=== PATIENT | male | born 2000 | race African-American/Black ===

== ENCOUNTER 2019-04-26 15:30 | Emergency (ER) | payer BC ==
[~2019-04-26] VITALS: Ht 182.9 cm; Wt 72.6 kg
[2019-04-26 16:29] LABS: BASO % 0 % (0-3); EOS % 0 % (0-3); HEMATOCRIT 43.9 % (39.0-53.0); HEMOGLOBIN 14.4 g/dL (13.0-17.5); LYMPH # 1.3 x10^3/uL (1.0-4.8); LYMPH % 16 % (24-48); MEAN CORPUSCULAR HEMOGLOBIN 26 pg (25-35); MEAN CORPUSCULAR HGB CONC 33 g/dL (31-37); MEAN CORPUSCULAR VOLUME 80 fL (79-100); MONO # 0.5 x10^3/uL (0.0-1.1); MONO % 6 % (0-9); NEUT # 6.2 x10^3/uL (1.8-7.7); NEUT % 77 % (31-73); PLATELET COUNT 197 x10^3/uL (140-400); RED BLOOD COUNT 5.49 x10^6/uL (4.30-5.70); RED CELL DISTRIBUTION WIDTH 14.6 % (11.5-14.5)
[2019-04-26] MEDS ORDERED: ONDANSETRON PF 4 MG/2 ML VIAL. ONE (16:29)
[2019-04-26 16:30] LABS: BILIRUBIN,URINE NEGATIVE (NEG); CLARITY,URINE CLEAR; COLOR,URINE YELLOW; NITRITE,URINE NEGATIVE (NEG); PH,URINE 7.5; PROTEIN,URINE 30 mg/dL (NEG-TRACE)
[2019-04-26 16:43] LABS: CALCIUM 9.8 mg/dL (8.5-10.1); CREATININE 1.1 mg/dL (0.7-1.3); GFR 103.3; POTASSIUM 3.6 mmol/L (3.5-5.1)
[2019-04-26 16:43] LABS: BACTERIA,URINE 0 /HPF (0-FEW); WBC,URINE 0 /HPF (0-4)
[2019-04-26] MEDS ORDERED: ONDANSETRON PF 4 MG/2 ML VIAL. IVP ONE (16:45)
[2019-04-26] MEDS ORDERED: IV NORMAL SALINE 1000ML BAG 1,000 ML IV ONE ×2 (16:45→17:00)
[2019-04-26 16:49] LABS: ALBUMIN 4.3 g/dL (3.4-5.0); ALBUMIN/GLOBULIN RATIO 1.1 (1.0-1.7); TOTAL BILIRUBIN 0.5 mg/dL (0.2-1.0); TOTAL PROTEIN 8.1 g/dL (6.4-8.2)
[2019-04-26 16:58] LABS: INFLUENZA A PATIENT NEGATIVE (NEGATIVE); INFLUENZA B PATIENT NEGATIVE (NEGATIVE)
[2019-04-26 16:59] LABS: AMPHETAMINE/METHAMPHETAMINE NEG (NEG); BARBITURATES NEG (NEG); BENZODIAZEPINES NEG (NEG); CANNABINOIDS POS (NEG); COCAINE NEG (NEG); METHADONE NEG (NEG); OPIATES NEG (NEG); PHENCYCLIDINE NEG (NEG)
[2019-04-26] MEDS ORDERED: fentaNYL PF VIAL 100 MCG/2 ML VIAL IVP ONE (17:00)
--- NOTE | 2019-04-26 17:08 | PHYS DOC ---
Past Medical History Past Medical History: No Pertinent History (LOYDA ARSHAD APRN) Alcohol Use: Occasionally Drug Use: Marijuana (LOYDA ARSHAD APRN) Adult General Chief Complaint Chief Complaint: NAUSEA/VOMITING/DIARRHA HPI HPI Patient is a 18 year old male who presents with generalized abdominal pain for the last 3 days. Patient states the first day he had some diarrhea but now he cannot use the restroom. Patient states he does have the urge to have the bowel movement but cannot. Patient states he started to have some chest pain also. Patient states his chest doesn't right now but is mostly due to vomiting. He rates his pain a 4 out of 10. States at times is sharp and stabbing. He states that he is vomiting yellow bile. (LOYDA ARSHAD APRN) Review of Systems Review of Systems Cardiovascular: Chest pain with vomiting GI: abdominal pain, nausea, vomiting, denies bloody stools or diarrhea [] All other systems were reviewed and found to be within normal limits, except as documented in this note. (LOYDA ARSHAD APRN) Current Medications Current Medications Current Medications Medications (Trade) Dose Ordered Sig/Meghan Start Time Stop Time Status Last Admin Dose Admin Famotidine (Pepcid Vial) 20 mg 1X ONCE 04/26/19 17:45 04/26/19 17:46 DC 04/26/19 17:16 20 MG Fentanyl Citrate (Fentanyl 2ml Vial) 50 mcg 1X ONCE 04/26/19 17:00 04/26/19 17:02 DC 04/26/19 17:11 50 MCG Haloperidol Lactate (Haldol Inj) 2.5 mg 1X ONCE 04/26/19 20:15 04/26/19 20:16 DC 04/26/19 19:49 2.5 MG Info (CONTRAST GIVEN -- Rx MONITORING) 1 each PRN DAILY PRN 04/26/19 17:15 04/26/19 20:52 DC Iohexol (Omnipaque 300 Mg/ml) 75 ml 1X ONCE 04/26/19 17:45 04/26/19 17:46 DC 04/26/19 17:25 75 ML Ondansetron HCl (Zofran) 4 mg 1X ONCE 04/26/19 16:45 04/26/19 16:46 DC 04/26/19 16:35 4 MG Sodium Chloride 1,000 ml @ 1,000 mls/hr 1X ONCE 04/26/19 17:00 04/26/19 17:59 DC 04/26/19 17:12 1,000 MLS/HR (ED CORDOVA MD) Allergies Allergies Allergies Coded Allergies Type Severity Reaction Last Updated Verified No Known Drug Allergies 04/26/19 No (ED CORDOVA MD) Physical Exam Physical Exam Constitutional: Well developed, well nourished, no acute distress, non-toxic appearance. [] HENT: Normocephalic, atraumatic, bilateral external ears normal, oropharynx moist, no oral exudates, nose normal. [] Eyes: PERRLA, EOMI, conjunctiva normal, no discharge. [] Neck: Normal range of motion, no tenderness, supple, no stridor. [] Cardiovascular:Heart rate regular rhythm, no murmur [] Lungs & Thorax: Bilateral breath sounds clear to auscultation [] Abdomen: Bowel sounds normal, soft, generalized tenderness, no masses, no pulsatile masses. [] Skin: Warm, dry, no erythema, no rash. [] Back: No tenderness, no CVA tenderness. [] Extremities: No tenderness, no cyanosis, no clubbing, ROM intact, no edema. [] Neurologic: Alert and oriented X 3, normal motor function, normal sensory function, no focal deficits noted. [] Psychologic: Affect normal, judgement normal, mood normal. [] (LOYDA ARSHAD APRN) Current Patient Data Vital Signs Vital Signs Date Time Temp Pulse Resp B/P (MAP) Pulse Ox O2 Delivery O2 Flow Rate FiO2 04/26/19 20:40 60 18 132/57 (82) 98 Room Air 04/26/19 15:48 98.4 98.4 (ED CORDOVA MD) Lab Values Laboratory Tests Test 04/26/19 15:43 04/26/19 16:06 Urine Collection Type Unknown Urine Color Yellow Urine Clarity Clear Urine pH 7.5 Urine Specific [place] >=1.030 Urine Protein 30 mg/dL (NEG-TRACE) Urine Glucose (UA) Negative mg/dL (NEG) Urine Ketones (Stick) Trace mg/dL (NEG) Urine Blood Negative (NEG) Urine Nitrite Negative (NEG) Urine Bilirubin Negative (NEG) Urine Urobilinogen Dipstick 1.0 mg/dL (0.2 mg/dL) Urine Leukocyte Esterase Negative (NEG) Urine RBC 3-5 /HPF (0-2) Urine WBC 0 /HPF (0-4) Urine Bacteria 0 /HPF (0-FEW) Urine Mucus Mod /LPF Urine Opiates Screen Neg (NEG) Urine Methadone Screen Neg (NEG) Urine Barbiturates Neg (NEG) Urine Phencyclidine Screen Neg (NEG) Urine Amphetamine/Methamphetamine Neg (NEG) Urine Benzodiazepines Screen Neg (NEG) Urine Cocaine Screen Neg (NEG) Urine Cannabinoids Screen Pos (NEG) Urine Ethyl Alcohol Neg (NEG) White Blood Count 8.0 x10^3/uL (4.0-11.0) Red Blood Count 5.49 x10^6/uL (4.30-5.70) Hemoglobin 14.4 g/dL (13.0-17.5) Hematocrit 43.9 % (39.0-53.0) Mean Corpuscular Volume 80 fL (79-100) Mean Corpuscular Hemoglobin 26 pg (25-35) Mean Corpuscular Hemoglobin Concent 33 g/dL (31-37) Red Cell Distribution Width 14.6 % (11.5-14.5) H Platelet Count 197 x10^3/uL (140-400) Neutrophils (%) (Auto) 77 % (31-73) H Lymphocytes (%) (Auto) 16 % (24-48) L Monocytes (%) (Auto) 6 % (0-9) Eosinophils (%) (Auto) 0 % (0-3) Basophils (%) (Auto) 0 % (0-3) Neutrophils # (Auto) 6.2 x10^3/uL (1.8-7.7) Lymphocytes # (Auto) 1.3 x10^3/uL (1.0-4.8) Monocytes # (Auto) 0.5 x10^3/uL (0.0-1.1) Eosinophils # (Auto) 0.0 x10^3/uL (0.0-0.7) Basophils # (Auto) 0.0 x10^3/uL (0.0-0.2) Sodium Level 139 mmol/L (136-145) Potassium Level 3.6 mmol/L (3.5-5.1) Chloride Level 101 mmol/L (98-107) Carbon Dioxide Level 26 mmol/L (21-32) Anion Gap 12 (6-14) Blood Urea Nitrogen 25 mg/dL (8-26) Creatinine 1.1 mg/dL (0.7-1.3) Estimated GFR (Cockcroft-Gault) 103.3 BUN/Creatinine Ratio 23 (6-20) H Glucose Level 98 mg/dL (70-99) Calcium Level 9.8 mg/dL (8.5-10.1) Total Bilirubin 0.5 mg/dL (0.2-1.0) Aspartate Amino Transferase (AST) 22 U/L (15-37) Alanine Aminotransferase (ALT) 17 U/L (16-63) Alkaline Phosphatase 74 U/L (46-116) Total Protein 8.1 g/dL (6.4-8.2) Albumin 4.3 g/dL (3.4-5.0) Albumin/Globulin Ratio 1.1 (1.0-1.7) Lipase 189 U/L (73-393) Influenza Type A Antigen Negative (NEGATIVE) Influenza Type B Antigen Negative (NEGATIVE) Laboratory Tests 04/26/19 16:06 Laboratory Tests 04/26/19 16:06 (ED CORDOVA MD) EKG EKG [] (LOYDA ARSHAD APRN) Radiology/Procedures Radiology/Procedures [] (LOYDA ARSHAD APRN) Impressions: [facility] [address] [place] [address] IMAGING REPORT Signed PATIENT: CAROLYN SHANKS ACCOUNT: [id number] : 2000 LOCATION: ER AGE: 18 SEX: M EXAM STATUS: REG ER ORD. PHYSICIAN: LOYDA ARSHAD APRN REASON: abd pain, n, v PROCEDURE: CT ABD PELV W/ IV CONTRST ONLY Exam: CT abdomen and pelvis with contrast INDICATION: Abdominal pain TECHNIQUE: Sequential axial images through the abdomen and pelvis obtained following the administration of 75 mL of Omni 300 IV contrast. Sagittal and coronal reformatted images were reconstructed from the axial data and reviewed. Comparisons: None FINDINGS: Heart size is normal. No pericardial effusion. Visualized lung bases are clear. No pleural effusion. Liver, spleen, pancreas, gallbladder and adrenals are unremarkable. Kidneys demonstrate symmetric enhancement. No perinephric inflammation or hydronephrosis. No renal or ureteral calculi are identified. Bladder is decompressed not well evaluated. Prostate is not enlarged. Hyperdense material in the right anterior hemiabdomen, presumably decompressed bowel. Otherwise, Large and small bowel are unremarkable. Appendix is normal. No free intra-abdominal air or fluid. No obstruction. Abdominal aorta has a normal course and caliber. Abdominal vasculature is patent. No enlarged abdominal lymph nodes are identified. No suspicious osseous lesions or acute fractures. IMPRESSION: 1. Evaluation is limited secondary to lack of intraperitoneal fat. Likely decompressed bowel in the right hemiabdomen anteriorly. Recommend correlation with ultrasound to check for intra-abdominal fluid. 2. Otherwise, No acute process identified within the abdomen or pelvis. Normal appendix. Exposure: One or more of the following in the visualized dose reduction techniques were utilized for this examination: 1. Automated exposure control 2. Adjustment of the MA and/or KV according to patient size 3. Use of iterative of reconstructive technique Electronically signed by: Easton Ruiz MD (04/26/2019 6:12 PM) [facility] DICTATED and SIGNED BY: EASTON RUIZ MD DATE: 04/26/191811 (LOYDA ARSHAD APRN) Course & Med Decision Making Course & Med Decision Making Patient states that he eats or drinks and it comes back up for the last 3 days. Alert and oriented. Skin pink warm and dry. Ambulatory with a steady gait. Generalized abdominal tenderness but abdomen is otherwise soft. Speaks in full clear sentences. No extremity edema. Lungs are clear to auscultation in all lobes. Patient denies any blood in his vomit or in his stool. Patient denies numbness or tingling, back pain, dysuria, headache, dizziness, syncope, visual changes, weakness, shortness of air. PERRLA. No CVA tenderness. Chest Xray read by Dr Monk as no acute findings. I went over ABD PELV CT with Dr Monk he states no further radiology needed. I have spoken to the patient about MJ use and vomiting and abdominal pain. Patient states he does not think it is the cause. He has agreed to take Haldol 2.5mg IM to see if it helps. Patient is currently being PO challenged. Patient has kept down 1 Glass of Water and States His Pain Is Better after Haldol Is Given. I Will Refer Him to a GI Doctor. Patient's Mother States That since He Was Little Result Complain about His Stomach. Patient's Mother States That the Patient Does Burp A Lot. I Will Also Start Him on Pepcid Twice a Day. (LOYDA ARSHAD APRN) Course & Med Decision Making I was not involved in the care of this patient after 1800 on 04/26/2019. (ED CORDOVA MD) Dragon Disclaimer Dragon Disclaimer This electronic medical record was generated, in whole or in part, using a voice recognition dictation system. (LOYDA ARSHAD APRN) Departure Departure Impression: Primary Impression: Nausea & vomiting Additional Impression: Abdominal pain Disposition: 01 HOME, SELF-CARE Condition: STABLE Referrals: NO PCP (PCP) BLANCO LUIS MD Patient Instructions: Abdominal Pain (Nonspecific), Nausea and Vomiting Additional Instructions: Follow up with primary care provider. Slowly increase your diet. Drink plenty of fluids. Scripts Famotidine (PEPCID) 20 Mg Tablet 20 MG PO BID, #30 TAB Prov: LOYDA ARSHAD APRN 04/26/19 Ondansetron (ONDANSETRON ODT) 4 Mg Tab.rapdis 1 TAB PO PRN Q6-8HRS, #16 TAB Prov: LOYDA ARSHAD APRN 04/26/19 Problem Qualifiers Primary Impression: Nausea & vomiting Vomiting type: unspecified Vomiting Intractability: non-intractable Qualified Codes: R11.2 - Nausea with vomiting, unspecified Additional Impression: Abdominal pain Abdominal location: generalized Qualified Codes: R10.84 - Generalized abdo chantel pain LOYDA ARSHAD APRN Apr 26, 2019 17:08 ED CORDOVA MD Apr 27, 2019 13:23
[2019-04-26] MEDS ORDERED: CONTRAST GIVEN. MC PRN (17:15)
[2019-04-26] MEDS ORDERED: IOHEXOL 300 MG/ML 100ML VIAL. IV ONE (17:45)
[2019-04-26] MEDS ORDERED: FAMOTIDINE 20 MG/2 ML VIAL IVP ONE (17:45)
--- NOTE | 2019-04-26 18:15 | RAD ---
Exam: CT abdomen and pelvis with contrast INDICATION: Abdominal pain TECHNIQUE: Sequential axial images through the abdomen and pelvis obtained following the administration of 75 mL of Omni 300 IV contrast. Sagittal and coronal reformatted images were reconstructed from the axial data and reviewed. Comparisons: None FINDINGS: Heart size is normal. No pericardial effusion. Visualized lung bases are clear. No pleural effusion. Liver, spleen, pancreas, gallbladder and adrenals are unremarkable. Kidneys demonstrate symmetric enhancement. No perinephric inflammation or hydronephrosis. No renal or ureteral calculi are identified. Bladder is decompressed not well evaluated. Prostate is not enlarged. Hyperdense material in the right anterior hemiabdomen, presumably decompressed bowel. Otherwise, Large and small bowel are unremarkable. Appendix is normal. No free intra-abdominal air or fluid. No obstruction. Abdominal aorta has a normal course and caliber. Abdominal vasculature is patent. No enlarged abdominal lymph nodes are identified. No suspicious osseous lesions or acute fractures. IMPRESSION: 1. Evaluation is limited secondary to lack of intraperitoneal fat. Likely decompressed bowel in the right hemiabdomen anteriorly. Recommend correlation with ultrasound to check for intra-abdominal fluid. 2. Otherwise, No acute process identified within the abdomen or pelvis. Normal appendix. Exposure: One or more of the following in the visualized dose reduction techniques were utilized for this examination: 1. Automated exposure control 2. Adjustment of the MA and/or KV according to patient size 3. Use of iterative of reconstructive technique Electronically signed by: Easton Romeor MD (04/26/2019 6:12 PM) [facility]
[2019-04-26] MEDS ORDERED: HALOPERIDOL LACTATE 5 MG/ML VIAL. IM ONE (20:15)
[2019-04-26 20:40] VITALS: BP 132/57
[2019-04-26] MEDS ORDERED: FAMO-63 PO (20:40)
[2019-04-26] MEDS ORDERED: ONDA4TAB12 PO (20:40)
--- NOTE | 2019-04-26 21:44 | RAD ---
Exam: Chest 2 views INDICATION: Chest pain TECHNIQUE: Frontal and lateral views the chest Comparisons: None FINDINGS: The cardiomediastinal silhouette and pulmonary vessels are within normal limits. The lung and pleural spaces are clear. IMPRESSION: No acute cardiopulmonary process. Electronically signed by: Easton Romero MD (04/26/2019 9:42 PM) [facility]
== END 2019-04-26 20:45 | disposition home or self-care (01) ==
LOC: ER 15:30
DX: R11.2 Nausea with vomiting, unspecified (principal); R10.84 Generalized abdominal pain; R07.89 Other chest pain; F12.90 Cannabis use, unspecified, uncomplicated; Z79.899 Other long term (current) drug therapy
CPT/HCPCS: 36415; 71046; 74177; 80053; 80307; 81001; 83690; 85025; 87804; 96361; 96372; 96374; 96375; 99285; J1630; J2405; J3010; J3490; J7030; Q9967